=== PATIENT | female | born 1985 | race African-American/Black ===

== ENCOUNTER 2016-07-29 17:33 | Emergency (ER) | payer MEDICAID ==
[~2016-07-29] VITALS: Ht 172.7 cm; Wt 85.0 kg
[2016-07-29] MEDS ORDERED: ONDANSETRON 2MG/ML, 2ML IVPush ONE (18:30)
[2016-07-29] MEDS ORDERED: MAALOX/HYOSCYAMINE/LIDOCAINE 45 ML BOTTLE PO ONE (18:30)
[2016-07-29] MEDS ORDERED: SODIUM CHLORIDE 0.9% 1,000ML IVBOLUS ONE (18:30)
[2016-07-29] MEDS ORDERED: FAMOTIDINE 20 MG/2 ML IVP ONE (18:30)
[2016-07-29] MEDS ORDERED: MORPHINE SULFATE 4 MG/ML, 1ML IVPush PRN (18:30)
[2016-07-29 18:49] LABS: HEMOGLOBIN 10.8 g/dL (11.7-16.4)
[2016-07-29 19:02] LABS: ASPARTATE AMINO TRANSFERASE 43 U/L (15-37); BLOOD UREA NITROGEN 7 mg/dL (7-18)
[2016-07-29] MEDS ORDERED: MORPHINE SULFATE 4 MG/ML, 1ML ONE (19:07)
[2016-07-29] MEDS ORDERED: FAMOTIDINE 20 MG/2 ML ONE (19:08)
[2016-07-29] MEDS ORDERED: ONDANSETRON 2MG/ML, 2ML ONE (19:08)
[2016-07-29] MEDS ORDERED: MAALOX/HYOSCYAMINE/LIDOCAINE 45 ML BOTTLE ONE (19:08)
[2016-07-29 20:58] LABS: HCG UR OBC PASS
[2016-07-29 21:47] VITALS: BP 109/64
== END 2016-07-29 21:59 | disposition home or self-care (01) ==
LOC: ED 18:47
DX: R10.13 Epigastric pain (principal); M25.572 Pain in left ankle and joints of left foot; M25.571 Pain in right ankle and joints of right foot; D72.829 Elevated white blood cell count, unspecified
CPT/HCPCS: 36415; 76700; 80053; 81001; 81025; 83690; 85025; 87086; 96361; 96374; 96375; 99285; J2405; J7030; S0028